=== PATIENT | male | born 2005 | race Two or more races ===

== ENCOUNTER 2025-07-20 15:25 | Emergency (ER) | payer MEDICAID, SELFPAY ==
[2025-07-20 16:07] VITALS: BP 146/89; PULSE 91; RESP 18; TEMP 36.3; O2SAT 97; BMI 20.7
--- NOTE | 2025-07-20 16:09 | ED_ITS ---
HPI - General Adult General Chief complaint: Skin/Abscess/Foreign Body Stated complaint: std? Time Seen by Provider: 07/20/25 16:24 Source: patient Mode of arrival: ambulatory Limitations: no limitations History of Present Illness ED Provider: Jillian Fajardo PA-C HPI narrative: Patient is a 20 year old male with no reported medical history presenting to the emergency department today with new lesions on his upper lip. Patient states that he is concerned he contracted an STI because he has new left sided upper lip lesions. Patient denies any lesions on his penis. Patient states that he just got over an upper respiratory infection / cold . Patient denies any other complaints at this time. Related Data Previous Rx's ?Medication ?Instructions ?Recorded valacyclovir 1 gram tablet 1,000 mg PO BID 7 days #14 tabs 07/20/25 Allergies Allergy/AdvReac Type Severity Reaction Status Date / Time No Known Allergies Allergy Verified 07/20/25 16:12 Review of Systems 2 Constitutional: Constitutional: Reports as per HPI Eyes: Eyes: Reports as per HPI ENT: Reports as per HPI Cardiovascular: Cardiovascular: Reports as per HPI Respiratory: Respiratory: Reports as per HPI Gastrointestinal: Gastrointestinal: Reports as per HPI Genitourinary: Genitourinary: Reports as per HPI Musculoskeletal: Musculoskeletal: Reports as per HPI Integumentary/Breasts: Skin/Breast: Reports as per HPI Neurologic: Reports as per HPI Psychiatric: Psychiatric: Reports as per HPI Endocrine: Endocrine: Reports as per HPI Hematologic/Lymphatic: Hematologic/Lymphatic: Reports as per HPI Allergic/Immunologic: Allergic/Immunologic: Reports as per HPI [facility] Past Medical History Attestation statement: The following information was validated with the patient. Source: old records reviewed and nursing notes reviewed Social History Social History Advance Directives: No Advance Directives Information Provided: Yes Physical Exam ED Vital Signs: Vital Signs - 24 hr 07/20/25 16:07 07/20/25 16:55 Temperature 97.3 F 97.3 F Pulse Rate 91 91 Respiratory Rate 18 18 Blood Pressure 146/89 H 146/89 H Pulse Oximetry 97 97 Oxygen Delivery Method Room Air Room Air BMI result Body Mass Index 20.7 Const General: cooperative, no acute distress, alert and awake Nutritional Appearance: well nourished Orientation/consciousness: patient oriented x3 HENMT Head: Yes normal to inspection and Yes atraumatic Ears: hearing grossly normal bilaterally and external ears normal General nose exam: Normal external nose present, no nasal discharge noted and no epistaxis Face and sinus: Yes normal facial exam, No abrasion and No laceration Mouth: Normal oral and palatal mucosa present, no drooling and no muffled voice Mouth/tongue images: 2 1. small area of multiple vesicular type lesions - herpetic in nature 2. small area of multiple vesicular type lesions - herpetic in nature Eyes General: appearance normal, both eyes and all related structures Periorbital: periorbital findings normal Eyelids: Yes eyelids normal Conjunctivae: conjunctivae normal Pupils: Equal, round and reactive pupils present EOM: EOMs intact bilaterally Neck Neck: Yes normal visual inspection and Yes full ROM Resp Effort & Inspection: normal respiratory effort and able to speak in complete sentences Neuro General: patient oriented x3, moves all extremities and CN's II-XI intact bilaterally Cranial nerves: Yes Equal, round and reactive pupils present Cognition (Neuro): normal cognition Extrem General: Yes normal to inspection, Yes full ROM and Yes capillary refill normal Psych Appearance: grossly normal Mental Status: mental status grossly normal Affect: normal affect Attitude: cooperative Thought process: Normal thought process present Thought content: Normal thought content present Insight: Good insight present (Psych) Medical Decision Making Medical Decision Making MDM Narrative: Patient is a 20 year old male with no reported medical history presenting to the emergency department today with new lesions on his upper lip. Patient's physical exam was as noted in the physical exam portion of this note. Patient's clinical presentation is most consistent with new onset cold sore / oral herpes simplex virus. I explained my physical exam findings to the patient. I answered all questions asked by the patient. I had an extensive conversation with the patient regarding what this diagnosis means and the best way he can avoid transmitting the lesions to others. I stressed the importance of the patient taking his medication as directed (either prescribed or as the over the counter packaging recommends). I stressed the importance of the patient following up with his primary care provider. I stressed the importance of the patient returning to the emergency department immediately if his symptoms were to worsen or if he were to develop any dizziness, shortness of breath, difficulty breathing, chest pain, blurry vision, loss of vision, nausea, vomiting, abdominal pain, fever, chills, back pain, or any other complaints. Patient verbalized agreement and understanding with this treatment plan and discharge. Differential Diagnosis Differential Diagnoses: The differential diagnosis associated with the presentation includes HSV Cold sore Admission/Observation Consideration of admission/observation: Escalation of care including admission/observation considered Patient would have been admitted to the hospital had his clinical presentation warranted hospital admission. Prescription Management I considered prescription management with: Antiviral (patient prescribed an anti viral for his cold sore) Discharge Plan Discharge Clinical Impression: Cold sore Patient Disposition: Home, Self-Care Instructions: Oral Herpes Infection (ED) Additional Instructions: The lesions on your lip are consistent with cold sores - also known as oral herpes. DO NOT TOUCH ANYTHING WITH YOUR EXPOSED LESIONS BECAUSE YOU COULD SPREAD IT. When you have these lesions present - this is considered being in an active outbreak - when you are in an active outbreak do NOT share drinks or ANYTHING that would touch your lesions then touch someone else. Take your medication as prescribed while you are in an outbreak. IF you are prescribed home medications and/or you are taking over the counter medications at home - it is very important you continue to do so as prescribed / directed unless told otherwise by a healthcare provider. Follow up with your primary care provider. Do your best to stay well hydrated and rest. Return to the emergency department immediately if your symptoms worsen or if you develop any numbness, tingling, dizziness, shortness of breath, difficulty breathing, chest pain, blurry vision, loss of vision, nausea, vomiting, abdominal pain, fever, chills, back pain, or any other complaints. L If you do not have a primary care provider - call any of the below numbers to establish and follow up with a primary care provider. [facility] Primary Care ([place]) [phone] [place] [address], [address] [facility] Primary Care ([address] [place]) [phone] [place] [address], [address] [facility], [address] [facility] Primary Care ([address] [place]) [phone] [place] [address], [address] [facility], [address] [facility] Primary Care ([place]) [phone] [place] [address], [address] [facility], [address] [facility] Family Medicine [phone] [place] [address], [id number] Please see the information below about our Patient Portal. If you are not yet enrolled in the [facility] Patient Portal, you will receive an enrollment email invitation following your visit to any [facility] setting. You may also self-enroll in the Patient Portal by visiting our website: [email or web address] The following information is required to access the Patient Portal: - Your [facility] Medical Record Number - Your personal home email address (must match what is in your electronic medical record, Registration staff can assist with this) - Name - Date of Capabilities of the Patient Portal: - Message some providers - View upcoming appointments - Access your health summary, medical history, and visit history - View current conditions and allergies - View procedure and lab results - View your medications, including guidelines, side effects, and precautions - Complete pre-appointment questionnaires requested by your provider - Ready summary reports of your office visits and procedures To access the Patient Portal Mobile Dat, follow these directions: - Search [employer] in the Dat Store or [employer] Store - Download the Dat - Search for [facility] - Enter your login/password Prescriptions: New valacyclovir 1 gram tablet 1,000 mg PO BID 7 Days Qty: 14 3RF Interventions: ED Discharge Assessment Last Done: 07/20/25 16:55 Discharge Date/Time: 07/20/25 16:57 Print Language: Cuban
[2025-07-20 16:55] VITALS: BP 146/89; PULSE 91; RESP 18; TEMP 36.3; O2SAT 97
== END 2025-07-20 16:57 | disposition home or self-care (01) ==
PROVIDERS: Emergency Provider Emergency Medicine
DX: B00.1 Herpesviral vesicular dermatitis (principal)
CPT/HCPCS: 99282; 99283